=== PATIENT | female | born 1980 | race Two or more races ===

== ENCOUNTER 2017-01-05 13:21 | Day surgery (SDC) | payer OTHER ==
--- NOTE | 2017-01-05 14:43 | Operative Note ---
Upper GI Endoscopy Procedure date: 01/05/17 Date of : 76 Procedure:Upper GI Endoscopy Esophagogastroduodenoscopy with cold biopsies and TTS balloon dilation Indications: Mrs. Marques is a 36-year-old female with moderate globus sensation and some dysphagia. This began a couple of weeks ago after drinking a protein shake. She does state that both her daughter and father have celiac disease. She does follow a gluten-free diet. Her genetic testing and serologies were negative for celiac disease with none of the serologies or DQ genotypes that would support celiac disease. The patient does have some chronic constipation. She did have some bleeding last spring and underwent colonoscopy by Dr. Faisal Rhodes which was normal but she was told that the bleeding was from constipation and she has been on MiraLAX which has helped. The patient does report bloating, nausea and moderate burping. She was given Prilosec for the globus sensation which did not help. She reports no heartburn, reflux, early satiety, indigestion, dyspepsia or epigastric discomfort. She does have moderate stress and is raising 2 children and practicing construction/business law with busy practice. Performing Provider: Charleen Holloway MD Referring Provider: Michael Bernstein M.D. Sedation: Fentanyl 200 mg IV/Versed 10 mg IV Procedure: Prior to the procedure, a history and physical exam was performed, and patients medications and allergies were reviewed. The risks and benefits of the procedure and the sedation options and risks were discussed with the patient. All questions were answered and informed consent was obtained. The patient was brought to the procedure room. Patient identification and proposed procedure were verified by the physician and the nurse. The patient was placed in a left lateral decubitus position and the scope was passed under direct vision. Throughout the procedure, the patient's blood pressure, pulse, and oxygen saturations were monitored continuously. The endoscope was introduced through the mouth, and advanced to the second part of duodenum. The upper GI endoscopy was accomplished without difficulty. The patient tolerated the procedure well. Findings: The scope was passed directly into the upper esophagus and advanced to the third portion of the duodenum. The post bulbar duodenum and duodenal bulb were normal with normal mucosa and conniventes. Cold biopsies were taken from the duodenum to rule out duodenitis or celiac disease. The scope was withdrawn through a normal duodenal bulb and pylorus into the stomach. There was some mild pylorospasm. There was also bile reflux with mild linear reactive gastritis of the antrum. The remainder of the antrum, body and fundus of the stomach were grossly normal. Upon retroflexion there was no hiatal hernia. 2 biopsies were taken in the antrum and along the lesser curvature for histology. The scope was then withdrawn into the esophagus. There was no evidence of reflux esophagitis or Noriega's. There were tertiary contractions and evidence of moderate esophageal dysmotility. The entire esophagus was dilated and there was resistance at the cricopharyngeus with cricopharyngeal spasm/UES (upper esophageal sphincter) spasm. Immediate complications: None EBL (ml): 0 Impression: 1. Nonerosive gastroesophageal reflux disease with moderate esophageal dysmotility and cricopharyngeal/UES spasm status post dilation to 20 mm 2. Bile reflux with mild linear reactive gastritis and pylorospasm Recommendations: The patient has globus sensation from functional reflux and cricopharyngeal spasm. I will discuss additional dietary measures and treatment options. I would continue the fiber bowel regimen. I will follow up the biopsies. at [id number]
[2017-01-05 15:55] VITALS: BP 128/88
== END 2017-01-05 15:22 | disposition home or self-care (01) ==
LOC: SDC 13:21
PROVIDERS: Internal Medicine Gastroenterology
PROC: 0DB78ZX Excision of Stomach, Pylorus, Via Natural or Artificial Opening Endoscopic, Diagnostic (ICD-10-PCS; 2017-01-05)
PROC: 0DB68ZX Excision of Stomach, Via Natural or Artificial Opening Endoscopic, Diagnostic (ICD-10-PCS; 2017-01-05)
PROC: 0D758ZZ Dilation of Esophagus, Via Natural or Artificial Opening Endoscopic (ICD-10-PCS; 2017-01-05)
PROC: 0DB98ZX Excision of Duodenum, Via Natural or Artificial Opening Endoscopic, Diagnostic (ICD-10-PCS; principal; 2017-01-05 14:00)
DX: R13.10 Dysphagia, unspecified (principal); K59.09 Other constipation; K21.9 Gastro-esophageal reflux disease without esophagitis; K29.50 Unspecified chronic gastritis without bleeding; K31.3 Pylorospasm, not elsewhere classified; K22.4 Dyskinesia of esophagus; Z79.51 Long term (current) use of inhaled steroids; Z79.899 Other long term (current) drug therapy
CPT/HCPCS: C1726